=== PATIENT | male | born 2005 | race Caucasian/White ===

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

== ENCOUNTER 2023-11-01 11:00 | Outpatient (RCR) | payer OTHER, SELFPAY ==
--- NOTE | 2023-10-13 07:46 | HP.PTEVAL_ITS ---
Patient's Visit Information Visit Information Visit Information: MERVAT GRIGGS is a 18 year old M referred to Physical Therapy by MAXIMILIANO WILSON with a diagnosis of L ankle sprain. Date of Evaluation: 10/10/23 Physical Therapist: Jeremiah Smith DPT Visit Plan Frequency: 2x /Week Duration: 6 Weeks Plan: Start with ROM progression all ranges, calf stretching. OKC ankle strengthening, knee/hip/core strengthening. WBing tolerance progression, ie wt. shifting to build tolerance to standing/walking. CKC exercises in boot. Subjective Subjective: Pt. is here today for his initial evaluation with diagnosis of L ankle sprain. Pt. reports having a teammate roll up on his leg resulting in an ankle sprain. Pt. arrives today using crutches and CAM boot. He reports having a small tibial fracture along with partial ligament tearing. His injury occurred ~ 5 weeks ago during football season. Pt. is to walk with his CAM boot slowly weaning from crutches as tolerated. Pt. has been working on some ROM exercises at home, but not much. Pt. plays football and is hopeful to play baseball as well. Pt. reports not much pain with ADLs. HE is attempting to WB more, but is still having some trouble. No N/T. Pt. reports overall doing well. Pain L ankle: Pain Intensity (Out of 10): 2 Pain Intensity Range: 2 Objective Objective: POSTURE: Pt. has increased wt. shift to R side in stance. PALPATION: Pt. has some mild distal tibia soreness and pain at ATFL, but minimal. NEURO: normal throughout. ROM: L ankle: DF 4deg, PF 28deg, INV 6deg, EVR 6 deg. PROM: DF 6deg, PF 32deg, INV 8, EVR 8deg. Pt. has normal B knee ROM. MMT: L ankle 4/5 throughout increase NE, L knee: 4+/5, throughout. GAIT: Pt. walks well with 2 crutches and good WBing through LLE. with 1 crutch, much more antalgic pattern noted. Pt. reports no pain, but difficulty completing. Balance/Special Test Scores Lower Extremity Functional Score: 32 Goals Goal 1:: LTG: Pt. to be I with HEP. Goal Time Frame: 4-6 Weeks Goal 2:: STG: Pt. to have increased ankle ROM to full without increase in symptoms. Goal Time Frame: 2-4 Weeks Goal 3:: LTG: pt. to have increased L ankle strength to 5/5 throughout without increase in symptoms. Goal Time Frame: 4-6 Weeks Goal 4:: LTG: Pt. to be able to ambulate with CAM boot without AD with normal gait pattern. Goal Time Frame: 4-6 Weeks Rehabilitation Potential Physical Therapy Diagnosis: pt. has signs and symptoms consistent with L ankle sprain. Pt. reports having a tibial fracture as well. He reported having some ligament tear, but believes they were partial tearing. Pt. has marked hypomobility, weakness, difficulty walking. He would benefit from PT to address the above limitations progressing back to all ADLs and recreational activities without limitations. Rehabilitation Potential: Excellent Anticipated Interventions Patient/Client Instruction: Educate patient on: Condition, Plan of Care, Risk Factors and Benefits of Fitness Program For the Purpose of:: To facilitate caregiver knowledge, To improve self management, To prevent re-injury, To improve ability to perform tasks related to life management and To improve tolerance to ADL's Therapeutic Exercise to Include: Strength training, Endurance training, Balance training, Postural training, Flexibilty training, Gait and locomotor training, Passive ROM and Active ROM For the Purpose of:: To decrease pain, To decrease swelling/inflammation, To increase ROM, To improve nutrient delivery to tissue, To increase oxygenation perfusion, To improve muscle performance and motor function, To improve ability to perform ADL's, To increase tolerance to activity/condition/position, To improve performance and independence with ADL's, To decrease soft tissue restriction and To increase flexibility/ROM Cryotherapy (ice pack, ice massage): Yes Vasopneumatic device: Yes For the Purpose of:: To decrease pain, To decrease swelling/inflammation, To increase ROM and To improve nutrient delivery to tissue Text: Thank you for the opportunity to evaluate your patient. For Medicare and Medicare HMO plans, please review the plan of care and approve it. It will need to be FAXED BACK to us at [phone] for Medicare purposes. For Medicare only, by signing this I certify the plan of care. Please let me know if there are questions or concerns regarding this plan of care. Physician Signature: Date:
--- NOTE | 2023-11-07 09:18 | HP.PTDCSUM ---
Discharge Summary D/C summary: It has been my pleasure to treat MERVAT GRIGGS referred by MAXIMILIANO WILSON, with the diagnosis of L ankle sprain for a total of 6 visit(s). Discharge Date: 11/07/23 Please see the following information for a summary of their discharge status. Subjective Subjective: Pt. reports feeling much better than previously. Pt. reports no pain currently. He is walking with CAM boot without crutches now. HEP compliant. He returns to school today. Pain L ankle: Pain Intensity (Out of 10): 0 Overall Improvement % Improvement: 65 Objective Objective/Function: ROM: Pt. has decent ROM in all directions, but is still pretty stiff into DF. Pt. has 6deg of DF, PF 42deg, INV 8deg, EVR 6deg. Pt. has 5/5 strength throughout. GAIT: pt. has good gait pattern with good tolerance with use of CAM boot. STAIRS: normal with cam boot. Pt. is overall doing well. He is still pretty stiff into DF. I talked to him about stretching this more. Pt. consents. he is returning to school at this point in time and will be DC from PT. Goals Goal 1:: LTG: Pt. to be I with HEP. Goal Progress: Goal Met Goal 2:: STG: Pt. to have increased ankle ROM to full without increase in symptoms. Goal Progress: Progressing Goal 3:: LTG: pt. to have increased L ankle strength to 5/5 throughout without increase in symptoms. Goal Progress: Goal Met Goal 4:: LTG: Pt. to be able to ambulate with CAM boot without AD with normal gait pattern. Goal Progress: Goal Met Plan Plan: Pt. to be DC from PT as he is returning back to school. He still needs to work on weaning from CAM boot and progressing DF ROM. D/C Information Discharge Comments: Pt. will be DC from PT back to physician at this point in time. Pt. needs to continue with focus DF to increase ability to complete all sporting activities. d/c sentence: If there are questions or concerns regarding this patient's physical therapy, please feel free to call me at [phone]. Thank you for the referral of this patient. Sincerely, Jeremiah Welch Sipos, DPT Balance/Gait/Functional tests Balance/Special Test Scores Lower Extremity Functional Score: 47 Improvement % Improvement: 65
== END 2023-11-01 19:00 | disposition home or self-care (01) ==
LOC: PT 11:00
PROVIDERS: PCP Pediatrics
DX: S93.402D Sprain of unspecified ligament of left ankle, subsequent encounter (principal)
CPT/HCPCS: 97110; 97161; 97164